=== PATIENT | female | born 1955 | race Caucasian/White ===

== ENCOUNTER → 2017-03-25 | Outpatient (CLI) | payer BC ==
--- NOTE | 2017-03-25 09:33 | DI ---
CT BONE DENSITOMETRY OF THE SPINE AND HIP, 03/25/2017 6:52 AM : Clinical History: Osteoporosis. Previous Exam: 01/31/2009; 12/17/2011; 09/19/2014; and 09/11/2015. 3D Quantitative CT (QCT) Bone Mineral Densitometry: The [place] scans are normal. Low dose scans are sampled through the midbodies of L1 and L2. Average bone mineral density (BMD) is 108.5 mg/mL corresponding to a volumetric T-score of -2.3, and Z-score of 0.1. The [employer]'s (ACR) volumetric QCT BMD conversion table categorizes thi s patient as having osteopenia of the lumbar spine. The previous bone mineral density values were 92. 8, 80.7, 87.3, and 104.3 mg per mL. The scans of the spine include the liver and there is severe diff use fatty infiltration, unchanged from the prior exam. CT X-Ray Absorptiometry (CTXA) Bone Mineral Densitometry of the Left Hip: Total hip BMD: 762 mg/cm2 T-score: -1.4 Z-score: -0.4 Femoral neck BMD: 655 mg/cm2 T-score: -1.3 Z-score: -0.2 READIN. The QCT lumbar spine BMD value by ACR's 3D volumetric to 2D areal conversion categorizes this pat ient as having osteopenia of the lumbar spine. The QCT spine T-score is -2.3, also indicating osteope isidro of the lumbar spine. 2. The CTXA total hip and femoral neck BMD T-scores are -1.4, and -1.3, respectively. The left total hip T-score indicates this patient has osteopenia of the total hip. 3. Severe fatty infiltration of the liver persists.
== END ==
LOC: CT 06:47
PROVIDERS: ATTEND Internal Medicine
DX: M81.0 Age-related osteoporosis without current pathological fracture (principal)
CPT/HCPCS: 77078

== ENCOUNTER → 2017-03-31 | Outpatient (CLI) | payer BC ==
[2017-03-31 07:50] LABS: MAGNESIUM 2.1 mg/dL (1.6-2.4)
== END ==
LOC: LAB 06:45
PROVIDERS: ATTEND Internal Medicine
DX: M81.0 Age-related osteoporosis without current pathological fracture (principal); E55.9 Vitamin D deficiency, unspecified
CPT/HCPCS: 83735; 84100